=== PATIENT | male | born 1950 | race Two or more races ===

== ENCOUNTER 2020-04-02 09:26 | Outpatient (CLI) | payer MEDICARE, MEDICAID ==
[~2020-04-02] VITALS: Ht 170.2 cm; Wt 97.1 kg
[2020-04-02 10:11] VITALS: BP 125/76
--- NOTE | 2020-04-02 18:45 | Consultation ---
DATE OF CONSULTATION: 04/02/2020 CONSULTING PHYSICIAN: Kwasi Gustafson MD CHIEF COMPLAINT: Complaint of rectal pain, rectal bleeding, and hemorrhoids. PAST MEDICAL HISTORY: 1. Hypertension. 2. Diabetes. 3. Hypercholesteremia. PAST SURGICAL HISTORY: None. MEDICATIONS: Please see medication reconciliation list. FAMILY HISTORY: No family history of GI malignancies. SOCIAL HISTORY: Patient denies any alcohol usage, but he used to smoke, quit in 2019. No IV drug abuse. ALLERGIES: Aspirin. REVIEW OF SYSTEMS: Positive for GERD and rectal bleeding. Apparently, patient had a colonoscopy recently. Results are not available. PHYSICAL EXAMINATION: VITAL SIGNS: Temperature 97.3, blood pressure 125/76, pulse is 101, respirations 20. HEENT: Normocephalic, atraumatic. Sclerae anicteric. NECK: Supple. No evidence of obvious lymphadenopathy. CARDIOVASCULAR: Regular rate and rhythm. Plus S1-S2. LUNGS: Clear to auscultation bilaterally. ABDOMEN: Positive bowel sounds. Soft and nontender. No rebound. No guarding. No peritoneal sign. EXTREMITIES: No cyanosis. No clubbing. No edema. ASSESSMENT AND PLAN: This is a 69-year-old male with recent colonoscopy, which we does not have the records is here for rectal pain and rectal bleeding. According to him, he most probably is bleeding from hemorrhoids and has a mild constipation. Again, he said he had a colonoscopy recently, which we do not have the report. Plan will be to treat for hemorrhoids with Anusol HC cream and also MiraLAX for constipation. We will try to obtain the records of colonoscopy. The patient to be back again in 3 months for followup. Kwasi Gustafson M.D. DR: AVIS JOB#: [id number] CC:
== END 2020-04-02 11:26 | disposition home or self-care (01) ==
LOC: PAN 09:26
DX: K62.89 Other specified diseases of anus and rectum (principal); K62.5 Hemorrhage of anus and rectum; K64.9 Unspecified hemorrhoids; I10 Essential (primary) hypertension; E11.9 Type 2 diabetes mellitus without complications; E78.00 Pure hypercholesterolemia, unspecified; K21.9 Gastro-esophageal reflux disease without esophagitis
CPT/HCPCS: G0463